=== PATIENT | female | born 1995 | race Caucasian/White ===

== ENCOUNTER 2017-05-20 09:22 | Emergency (ER) | payer OTHER ==
[2017-05-20 09:32] VITALS: BP 98/57
--- NOTE | 2017-05-20 09:51 | UC ---
Eye Complaint HPI - HPI Summary HPI Summary: C/O swollen painful left upper eyelid over the last 2 days. - History of Current Complaint Chief Complaint: UCEye Stated Complaint: EYE COMPLAINT Time Seen by Provider: 05/20/17 09:39 Hx Obtained From: Patient ?: No Onset/Duration: Gradual Onset, Lasting Days - 2, Worse Since - onset Timing: Constant Severity Initially: Mild Severity Currently: Moderate Location of Injury: Eye Lid (upper) - OS Character: Dull Aggravating Factor(s): Blinking Alleviating Factor(s): Nothing Associated Signs And Symptoms: Negative: Drainage (Clear), Drainage (Purulent), Vision Impairment Left - Risk Factors Penetrating Injury Risk Factor: Negative Globe Rupture Risk Factors: Negative - Allergies/Home Medications Allergies/Adverse Reactions: Allergies Allergy/AdvReac Type Severity Reaction Status Date / Time No Known Allergies Allergy Verified 05/20/17 09:29 Home Medications: Home Medications Sertraline* [Zoloft*] 50 mg PO DAILY 05/20/17 [History Confirmed 05/20/17] PMH/Surg Hx/FS Hx/Imm Hx Previously Healthy: Yes - Surgical History Surgical History: Yes Surgery Procedure, Year, and Place: APPENDCTOMY - Family History Known Family History: Negative: Cardiac Disease, Hypertension, Diabetes - Social History Occupation: Student Lives: Dormitory/Roommates Alcohol Use: Weekly Substance Use Type: None Smoking Status (MU): Never Smoked Tobacco Review of Systems Eyes: Eye Redness - on the eyelid Is Patient Immunocompromised?: No All Other Systems Reviewed And Are Negative: Yes Physical Exam Triage Information Reviewed: Yes Appearance: Well-Appearing, No Pain Distress, Well-Nourished Vital Signs: Initial Vital Signs Temp 98.2 F 05/20/17 09:26 Pulse 60 05/20/17 09:26 Resp 14 05/20/17 09:26 BP 98/57 05/20/17 09:26 Pulse Ox 98 05/20/17 09:26 Vital Signs Reviewed: Yes Eyes: Positive: Other: - left lateral upper eyelid swollen red, tender ENT Exam: Normal Neck exam: Normal Respiratory Exam: Normal Cardiovascular Exam: Normal Musculoskeletal Exam: Normal Neurological Exam: Normal Psychological Exam: Normal Skin Exam: Normal Eye Complaint Course/Dx - Differential Dx/Diagnosis Differential Diagnosis/HQI/PQRI: Conjunctivitis, Periorbital Cellulitis, Uveitis Provider Diagnoses: Left upper eyelid Stye Discharge - Discharge Plan Condition: Stable Disposition: HOME Prescriptions: Erythromycin OPTH OINT* [Erythromycin 0.5% OPTH OINT*] 0.25 inch LEFT EYE TID # 3.5 gm Patient Education Materials: Cami (ED), Erythromycin (Into the eye) Additional Instructions: EYE OINTMENT USE: Wash hands. Place 1/4" strip across tip of finger. Pull lower lid down with the index finger and stabilize the ointment finger with the middle finger and scrape the ointment off on the lid. Pull the lid out and let go as you look down.
== END 2017-05-20 10:05 | disposition home or self-care (01) ==
LOC: UCCORT 09:22
DX: H00.014 Hordeolum externum left upper eyelid (principal)
CPT/HCPCS: 99212; G0463

== ENCOUNTER 2019-08-19 20:34 | Emergency (ER) | payer OTHER ==
--- OUTSIDE RECORDS SUMMARY | 2019-08-19 20:44 | XMS REPORT | Summary of Care ---
:1995 Author Organization [facility] Address SERVICE AREA , Care Team Providers Name Role Phone Hortencia Boston MD Primary Care Provider Reason for Visit Reason Comments Mouth Lesions Encounter Details Date Type Department Care Team Description 07/14/2019 Emergency [facility] Dashawn Mancilla MD EMERGENCY DEPARTMENT [address] [facility] [address] [place] [address] AL[place] [address] [phone] Allergies No Known Allergiesdocumented as of this encounter (statuses as of 07/14/2019) Medications Medication Sig Dispensed Refills Start Date End Date Status Biotin 2,500 mcg cap Take by 0 Active mouth. cyanocobalamin (VITAMIN Take 1,000 mcg 0 Active B-12) 1,000 mcg tablet by mouth daily. clotrimazole (MYCELEX) Take 1 Tab by 50 Tab 0 07/14/2019 07/24/2019 Active 10 mg karl mouth five (5) times daily for 10 days. documented as of this encounter (statuses as of 07/14/2019) Active Problems Problem Noted Date Headache, unspecified headache type 12/25/2017 documented as of this encounter (statuses as of 07/14/2019) Social History Tobacco Use Types Packs/Day Years Used Date Current Every Day Smoker Smokeless Tobacco: Never Used Alcohol Use Drinks/Week oz/Week Comments No Sex Assigned at Date Recorded Not on file Job Start Date Occupation Industry Not on file Not on file Not on file Travel History Travel Start Travel End No recent travel history available. documented as of this encounter Last Filed Vital Signs Vital Sign Reading Time Taken Comments Blood Pressure 111/67 07/14/2019 8:17 PM EST Pulse 61 07/14/2019 8:17 PM EST Temperature 36.2 07/14/2019 8:17 PM EST C (97.2 F) Respiratory Rate 19 07/14/2019 8:17 PM EST Oxygen Saturation 100% 07/14/2019 8:17 PM EST Inhaled Oxygen Concentration - - Weight 49 kg (108 lb) 07/14/2019 7:05 PM EST Height 165.1 cm (5' 5") 07/14/2019 7:05 PM EST Body Mass Index 17.97 07/14/2019 7:05 PM EST documented in this encounter Discharge Instructions Radha Llamas PA - 07/14/2019 Patient Education Candidiasis: Care Instructions Your Care Instructions Candidiasis (say "ovr-vsa-RM-uh-lennox") is a yeast infection. Yeast normally lives in your body. But it can cause problems if your body's defenses don't work as they should. Some medicines can increase your chance of getting a yeast infection. These include antibiotics, steroids, and cancer drugs. And some diseases like AIDS and diabetes can make you more likely to get yeast infections. There are different types of yeast infections. Thrush is a yeast infection in the mouth. It usually occurs in people with weak immune systems. It causes white patches inside the mouth and throat. Yeast infections of the skin usually occur in skin folds where the skin stays moist. They cause red,oozing patches on your skin. Babies can get these infections under the diaper. People who often weargloves can get them on their hands. Many women get vaginal yeast infections. They are most common when women take antibiotics. These infections can cause the vagina to itch and burn. They also cause white discharge that looks like cottage cheese. In rare cases, yeast infects the blood. This can cause serious disease. This kind of infection is treated with medicine given through a needle into a vein ( IV). After you start treatment, a yeast infection usually goes away quickly. But if your immune system isweak, the infection may come back. Tell your doctor if you get yeast infections often. Follow-up care is a butterfield part of your treatment and safety. Be sure to make and go to all appointments, and call your doctor if you are having problems. It's also a good idea to know your test results and keep a list of the medicines you take. How can you care for yourself at home? Take your medicines exactly as prescribed. Call your doctor if you think you are having a problem with your medicine. Use antibiotics only as directed by your doctor. Eat yogurt with live cultures. It has bacteria called lactobacillus. It may help prevent some types of yeast infections. Keep your skin clean and dry. Put powder on moist places. If you are using a cream or suppository to treat a vaginal yeast infection , don't use condoms or a diaphragm. Use a different type of control. Eat a healthy diet and get regular exercise. This will help keep your immune system strong. When should you call for help? Watch closely for changes in your health, and be sure to contact your doctor if: You do not get better as expected. Where can you learn more? Go to http://www.ChaseFuture.Geddit/Sapling Learningections. Enter N733 in the search box to learn more about "Candidiasis: Care Instructions." Current as of: September 11, 2018 Content Version: .[id number] Yeelink. Care instructions adapted under license by [employer]ist (which disclaims liability or warranty for this information). If you have questions about a medical condition or this instruction, always ask your healthcare professional. Yeelinkdisclaims any warranty or liability for your use of this information. The following are your lab and/or imaging results: No results found for this or any previous visit (from the past 24 hour(s)). No results found. Please understand that the emergency care received is not intended to be complete and definitive medical care and treatment. We wish you good health. Please follow up as recommended. Thank you for choosing our Emergency Department. Below, you will find some frequently asked questions and answers about your care once you leave the Emergency Department. Q: What information is in my discharge instructions? A: The discharge instructions that you received contain important information about your Emergency Department visit and follow-up care. It is important that you take this packet with you to your follow-up doctors appointment(s). The packet may include the following: ? Education about your diagnosis ? Information about medications or prescriptions that you received in the Emergency Department. Please update your medication list and discuss any new medications with your primary doctor or specialist(s). ? If you had tests in the Emergency Department, the final results may be printed in your instructions. ? Information about which doctor you should make a follow-up appointment with after your Emergency Department visit. Q: Do I need to follow-up with a doctor after I am discharged? A: Yes. It is very important that you make an appointment for follow-up care after your visit to the Emergency Department. Almost everyone who is seen in the Emergency Department should also see their primary doctor or a specialist, usually within 3 days. The evaluation that you received in the Emergency Department is not meant to diagnose and/or treat every medical condition that could be affecting you. Your follow-up doctor can perform additional tests or treatments. They can also recommend a specialist for you, if necessary. Q: What should I do if I am not feeling better, if new symptoms develop, or if I get worse? A: For any emergency medical condition, you should return to the Emergency Department to be re-examined. We are available 24 hours a day, every day. For concerns that are less urgent, you should follow up with your primary doctor or specialist as soon as possible. Q: The ER is easy to use, since I do not need an appointment. Can I just come back to ER rather than seeing my regular doctor? A: We feel that having a primary care doctor is one of the most important health decisions that you can make. The Emergency Department is set up to deal with emergencies, while a primary care doctor is better prepared to address non- urgent or chronic health problems. You may find that you will receive more complete medical attention if you connect with a primary care doctor in your area because of the nature of such a relationship. A primary doctor will get to know your medical history, medications, health risk factors, and work with you to improve your overall health. A primary care doctor can manage most of your care, provide prescriptions for treatment of your conditions, send you for tests, or refer you to see a specialist when necessary. This could prevent worsening in your health and avoid potentially unnecessary Emergency Department visits or hospital admissions. Q: When should I go to my primary doctor instead of the Emergency Department? A: Primary doctors or doctors in walk-in clinics can usually treat common illness, minor injuries, and provide routine health exams. You should make an appointment with a doctors office or walk-in clinic for: ? Colds, flu, ear aches, sore throat, migraines, fever, rashes ? Minor injuries such as sprains, back pain, minor cuts and rider, or minor broken bones ? Pain management for chronic conditions ? Regular physicals, school physicals, prescription refills, vaccinations, health screenings ? An ongoing or chronic health problem where you need advice Visits to a hospital Emergency Department should be for emergency medical conditions that are typically serious or life threatening. If you are experiencing any of the following symptoms, call 911 orget to the nearest hospital emergency room: ? Chest pain ? Severe abdominal pain ? Coughing or vomiting blood ? Deep cuts ? Sudden blurred vision, dizziness, difficulty speaking, or loss of balance ? Sudden numbness or weakness in face, arm, or, leg, especially on one side ? Difficulty breathing ? Severe headache (not a migraine) ? Seizures ? High fevers ? Any other condition you believe is serious or life threatening Nonetheless, any person who comes to the emergency room with a medical condition will receive a medical screening examination that is appropriate for their medical condition. Q: What happens if I do not have a regular doctor or specialist? A: There are many options to help you find a doctor, if you do not already have one. 1) Your emergency department doctor may list in your discharge instructions the names and phone numbers of primary doctors or specialists trained to treat your medical problems. 2) Go to the Burt website and use the find a physician function: http://Leap.Stix Games/babu-a-ypdoxbkeu- physician-motor inspection mechanic.html 3) Call the number on the back of your insurance card for member services. They will beable to help you find a doctor near you Q: I want a primary doctor, but I do not have health insurance or cannot afford to pay a lot of money. A: There are several local [facility] health clinics that provide medical services to people who do not have insurance or cannot afford to visit a doctor. The clinics listed below offer a sliding payment scale based on the size of your family and your income. 1) [facility] multiple centers throughout the [facility], including in [facility], and [facility]. Telephone: . Website - [email or web address]://www.[email or web address].[email or web address] 2) [address] [address]. Website - http://www.[facility] [email or web address] 3) [facility] [address], [place] [address] Q: I was prescribed a strong medication for pain, muscle relaxation, or anxiety. Are there any precautions? A: Yes. The control of pain is an important aspect of your care. Most pain can be controlled withover-the counter medications. In some cases, patients may be prescribed a limited amount of prescription pain or muscle relaxation medicines. These medications fall into two basic categories: ? Opiates are used to treat pain. Examples include: codeine, oxycodone, hydrocodone, Vicodin, Percocet, Lortab, morphine, hydromorphone, Dilaudid, Fentanyl ? Benzodiazepines can be used to treat muscle spasm or anxiety. Examples include: Ativan, lorazepam, Klonopin, clonazepam, Valium, diazepam, Xanax, alprazolam Because these medications may cause dizziness, confusion, loss of balance, or sleepiness, you shouldnever take them before driving or operating machinery. You should only take these medications as your doctor tells you. Never share them with others. Keep them away from children. All of these medications can be dangerous or addictive, especially if you take them improperly. Youshould only take the smallest amount needed to control your symptoms, and never take more than prescribed. If you take too much of these medicines or mix them with alcohol or other medications that also make you sleepy, if could result in harm or even . If you think you need help with an addiction to these types of medications, speak to your primary doctor or return to the Emergency Departmentfor advice. If you feel your pain or symptoms are not controlled, be sure you follow up with your primary care doctor and/or specialist. A pain management doctor is another option to further help control your pain. Ask your primary doctor for a referral to a paint roller covermaker. Q: How can I safely dispose of medications that are no longer needed or wanted? A: Safely disposing medications that you no longer need or want is important. Throwing your medications in the trash can leave them unattended where children , adults, or pets can purposely or accidentally take them. Dumping medications down the toilet or sink is harmful to the environment. There aresafer ways to dispose your medications. Many businesses and communities have medication take-back events or have disposal containters available for drop-off throughout the year. You can call your local police department or pharmacist to inquire about options where and when you can safely dispose of medications. Below are some listings ofdrop off locations. Keep in mind many drop-off sites have restrictions regarding what can be disposed. Some will not accept needles, liquids, or aerosols. Hours of operation for drop off vary. Most are anonymous. For more information, check with each individual site. General Drop-off Locations: ? The [facility] website has a search tool which will locate community disposal locations based onzip code throughout the [facility]. You can access the site at the following address: https://www.Robin/content/safer- communities-locate ? [facility] has drug disposal kiosks in many of their stores in [facility], including [place]. To find a store location with a disposal kiosk, go to the following address: https://www.[employer]/ storelocator/find.jsp?RxDisposal=true Community Drop-off Locations in [place], [place]: [place] [employer] [address] [place] [address] [facility] Department [address] [place] [address] [place] [employer] Headquarters [address] [place] [address] [place] [employer] [address], [place] [address] [place] [employer] [address] [facility] [address] Critical access hospital Police Department [address] [facility] [address] [place] [employer] [address] [place] [address] [place] [employer] [address] [place] [address] [facility] Police Division [address] [place] [address] [facility] [address] [place], [place] [facility] [place] [employer] [address] [id number] [place] [employer] [address] [place] [address] Community Drop-off Locations in [place]: The [facility] has a listing on their website which locates all drop- boxes in the entire [facility]. You can access the site at the following address: http://www.[facility].gov/meddrop/pages/locations.aspx For any patients or families with emotional or mental health concerns please see below from [facility]. Tejal. Recovery. Resilience. Bc [place]. Governor Aziza Rodríguez MD, Commissioner How can I find help after I leave the hospital? Planning ahead can help people living with mental illness avoid a crisis situation. By talking with your doctor and treatment team, you can develop a plan that will help you if you feel your symptoms are returning. Be sure to have the number of a contact center director to call before you leave the hospital. The first thing to do if you feel your health worsening is to call your contact center director or your mental health professional. If you don't currently have a mental health professional, make an urgent appointment with a primary care physician just as you would for the flu or an infection, so that you can begin finding support quickly. You can also make an appointment with a mental health professional through [facility]' s "Find a Mental Health Program" or in [facility] by calling [facility] at [phone] -[facility] or texting "WELL" [place] [phone]. Find a Mental Health Program You can use the [facility] "Find a Mental Health Program" guide (https://my.[facility].nm.gov/ bi/pd/) to find clinic, outpatient, crisis, and emergency services in your area. The Program Directory provides a list ofall programs in [facility] that are operated, licensed, or funded by the Office of Mental Health. The directory provides information on all types of mental health services. Are you experiencing a crisis? Don't have a mental health provider or can't reach them? Fortunately, there are many organizations that offer help for people going through a difficult time.They can be an important first step in getting the help you need. Some hotlines that can help you find support and services include : National Suicide Prevention Lifeline If your life or someone else's is in imminent danger, please call 088. If you are in crisis and needimmediate help, please call: 0-770-139-TALK (3649). Crisis Text Line [facility] has partnered with [employer] Line, an anonymous texting service available 13/02. Starting a conversation is easy. Text MBX2 to 598725. Domestic Violence If you or someone else is in a relationship is being controlled by another individual through verbal, physical, or sexual abuse, or other tactics, please call: . [employer] Empowerment Center An advocacy and peer-support organization run by consumers and ex-patients in recovery. Call: 742-simsw9d (477-991-5082) National [place] on Mental Illness [facility] offers a hotline (4-340-012-[facility] (0747) and email address (info@[facility].org) to help answer your questions about local support groups, services and treatment options. The [employer] Project Provides crisis intervention and suicide prevention services to lesbian, noyola, bisexual, transgender and questioning youth. Call: If you still cannot get the help you need and are experiencing a crisis, you should: Call 952 Tell the flat lock operator that it is a "mental health emergency" and ask for emergency responders with Crisis Intervention Team (CIT) training. Many first responders will approach a mental health situation differently if they know what to expect. In [facility], you can call [facility] for help in a crisis at 9-526-[facility] or texting "WELL" qf64262. Go to the emergency room at your local hospital. If you are in crisis and it's not possible to get in touch with a mental health or crime scene specialist, a visit to an emergency room is your best option. Know your rights for insurance coverage [facility] has a new program to help people access their insurance coverage for substance use disorders and mental health services. The new [facility], called Community Health Access to Addiction and Mental Healthcare Project(CHAMP) can help you better understand your legal rights to behavioral health insurance coverage andhelp you to access treatment and services. The Екатеринаpetrman's Office can also help with health insurance coverage. A general mailbox (Chari@[facility].nm.gov) and a hotline number ) have been established for questions. Remember, it's OKAY to seek support. Far too many people who have behavioral health concerns for themselves or their family members are reluctant to seek advice or treatment because of the stigma surrounding mental illness. Fortunately, that is changing. People are realizing that mental illness is not a weakness or personal failing. There is no shame inseeking out mental health services, just as there's no shame in seeking medical treatment for high blood pressure, diabetes, or physical rehabilitation. The [facility] Office of Mental Health operates psychiatric centers across the [facility], and also regulates, certifies and oversees more than 4,500 programs, which are operated by local governments and nonprofit agencies. To contact [facility] or one of its Field Offices located across the [facility]: [facility] Office of Mental Health [place] , www.[facility].nm.[facility] Field Office [place] [facility] Field Office [facility] Field Office [facility] Field Office [facility] Field Office [facility]. Recovery. Resilience. documented in this encounter ED Notes Moe Jay RN - 07/14/2019 8:20 PM ESTPt discharged with instructions, pt verbalized understanding of instruction. No visible distress noted, ambulates with steady gait without assistance. Moe Ruffin RN - 07/14/2019 7:34 PM ESTSeen and examined by Mimi Orozco Callie Santa RN - 07/14/2019 7:05 PM ESTPt c/o sore on her tongue X 3 days spreading to under tongue. States her gums are inflammed documented in this encounter Plan of Treatment Health Maintenance Due Date Last Done Comments Pneumococcal 0-64 years (1 of 1 - PPSV23) 2003 DTaP/Tdap/Td series (1 - Tdap) 2008 HPV Age 9Y-26Y (1 - Female 2-dose series) 2008 PAP AKA CERVICAL CYTOLOGY 2018 Influenza Age 9 to Adult 02/21/2019 documented as of this encounter Results Not on filedocumented in this encounter Visit Diagnoses Diagnosis Oral thrush - Primary Candidiasis of mouth Angular cheilitis Diseases of lips documented in this encounter documented as of this encounter
[2019-08-19 20:52] VITALS: BP 107/62
--- NOTE | 2019-08-19 22:26 | UC ---
Abdominal Pain Female HPI - HPI Summary HPI Summary: 24 YO with right lower abdominal pain x 3 days, not worsening but not resolving , with increased pain with movement. 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 and has been training up to 4.5 hours per day, but can recall no specific strain or injury. Aware of mild discomfort while swimming, but it has not affected her ability to exercise. Appendectomy 10 years ago. No hx of bowel concerns. Bowels are normal, not constipated, and single episode of loose stool last week resolved. Appetite is normal and pain does not increase with activity. Just finished menses, normal. No increase in vaginal discharge. She has not been sexually active since March and is confident that she does not have an STD. No urinary symptoms. No hx of ovarian cysts and her last menses was normal and not painful. Sleep has not been disrupted by pain. - History of Current Complaint Chief Complaint: UCAbdominalPain Stated Complaint: RIGHT SIDE/ABD PAIN Time Seen by Provider: 08/19/19 22:15 Hx Obtained From: Patient Hx Last Menstrual Period: 08/12/19 Onset/Duration: Gradual Onset, Lasting Days - 3 Timing: Constant Severity Initially: Mild Severity Currently: Mild Pain Intensity: 4 Location: Discrete At: RLQ - area of pain is discrete , just medial to the ASIS of the pelvis, and does not radiate Radiates: No Character: Aching, Dull Aggravating Factor(s): Movement Alleviating Factor(s): Nothing - has not used analgesics. Associated Signs and Symptoms: Positive: Negative - Risk Factors Ectopic Risk Factor: Negative Ovarian Torsion Risk Factor: Reproductive Age Allergies/Adverse Reactions: Allergies Allergy/AdvReac Type Severity Reaction Status Date / Time No Known Allergies Allergy Verified 08/19/19 20:45 Home Medications: Home Medications Sertraline* [Zoloft*] 12.5 mg PO BEDTIME 08/19/19 [History Confirmed 08/19/19] PMH/Surg Hx/FS Hx/Imm Hx Previously Healthy: Yes - Surgical History Surgical History: Yes Surgery Procedure, Year, and Place: APPENDECTOMY - Family History Known Family History: Negative: Cardiac Disease, Hypertension, Diabetes - Social History Occupation: Student Lives: Dormitory/Roommates Alcohol Use: Rare Substance Use Type: None Smoking Status (MU): Never Smoked Tobacco Have You Smoked in the Last Year: No Review of Systems All Other Systems Reviewed And Are Negative: Yes Constitutional: Positive: Negative Skin: Positive: Negative Eyes: Positive: Negative ENT: Positive: Negative Respiratory: Positive: Negative Cardiovascular: Positive: Negative Gastrointestinal: Positive: Abdominal Pain Genitourinary: Positive: Negative Motor: Positive: Negative Neurovascular: Positive: Negative Musculoskeletal: Positive: Negative Neurological: Positive: Negative Psychological: Positive: Negative Is Patient Immunocompromised?: No Physical Exam Triage Information Reviewed: Yes Appearance: Well-Appearing, Pain Distress - mild Vital Signs: Initial Vital Signs Temp 98 F 08/19/19 20:46 Pulse 68 08/19/19 20:46 Resp 16 08/19/19 20:46 BP 107/62 08/19/19 20:46 Pulse Ox 100 08/19/19 20:46 ENT: Positive: Pharynx normal Neck: Positive: Supple, Nontender, No Lymphadenopathy Respiratory: Positive: Lungs clear, Normal breath sounds, No respiratory distress Cardiovascular: Positive: RRR, No Murmur Abdomen Description: Positive: No Organomegaly, Soft, Peritoneal Signs, Other: - tendernss along lateral border of rectus sheath can be reproduced by stressing the abdominal muscles. No palpable mass. Discussed performing pelvic exam to assess for possible ovarian cyst, but she declined the exam. Negative: CVA Tenderness (R), CVA Tenderness (L), Distended, Guarding Bowel Sounds: Positive: Present Pelvic Exam: Positive: Other - pelvic exam declined. Musculoskeletal Exam: Other - tenderness right lower rectus muscle. No palpable masses. Musculoskeletal: Positive: Strength Intact Neurological Exam: Normal Psychological Exam: Normal Skin Exam: Normal Diagnostics - Laboratory Lab Results: Urine analysis normal, test negative Abd Pain Female Course/Dx - Course Course Of Treatment: ibuprofen and warm moist compresses - Differential Dx/Diagnosis Differential Diagnosis: Ovarian Cyst, Renal Colic, Urinary Tract Infection Provider Diagnosis: Strain of rectus abdominis muscle Discharge ED - Sign-Out/Discharge Documenting (check all that apply): Patient Departure All imaging exams completed and their final reports reviewed: No Studies - Discharge Plan Condition: Stable Disposition: HOME Patient Education Materials: Muscle Strain (ED) Referrals: No Primary Care Phys,NOPCP [Primary Care Provider] - Additional Instructions: The pain is most suggestive of a strain in the rectus muscle. Use warm moist compresses on the low abdomen and ibuprofen 600mg up to 3 times per day. If you have pain persisting beyond 3 or 4 days, or worsening, the next step is an ultrasound scan of the pelvis. - Billing Disposition and Condition Condition: STABLE Disposition: Home
== END 2019-08-19 22:38 | disposition home or self-care (01) ==
LOC: UCCORT 20:34
DX: S39.011A Strain of muscle, fascia and tendon of abdomen, initial encounter (principal); X58.XXXA Exposure to other specified factors, initial encounter; Y92.9 Unspecified place or not applicable
CPT/HCPCS: 81003; 84702; 99211; G0463